=== PATIENT | male | born 1985 | race Two or more races ===

== ENCOUNTER 2017-12-19 23:17 | Emergency (ER) | payer MEDICAID ==
[~2017-12-19] VITALS: Ht 177.8 cm; Wt 97.5 kg
--- NOTE | 2017-12-19 23:17 | NUR ---
EPIGASTRIC PAIN SINCE 1999, UNRELIEVED WITH TUMS. VSS NAD A/OX4 ABLE TO MAKE NEEDS KNOWN. WILL CONTINUE TO MONITOR FOR ANY CHANGES DURING THE SHIFT.
--- NOTE | 2017-12-19 23:19 | NUR ---
ER MD JOHNSON AT BEDSIDE
[2017-12-19] MEDS ORDERED: FAMOTIDINE (20 MG) 20 MG TABLET ONE (23:52)
[2017-12-19] MEDS ORDERED: LIDOCAINE VISCOUS 2% UD 15 ML UDC ONE (23:52)
[2017-12-19] MEDS ORDERED: ONDANSETRON 4 MG TAB.RAPDIS ONE (23:52)
[2017-12-19] MEDS ORDERED: MAG HYDROX/AL HYDROX/SIMETH 30 ML UDC ONE (23:52)
[2017-12-20] MEDS ORDERED: FAMOTIDINE (20 MG) 20 MG TABLET PO ONE
[2017-12-20] MEDS ORDERED: MAG HYDROX/AL HYDROX/SIMETH 30 ML UDC PO ONE
[2017-12-20] MEDS ORDERED: LIDOCAINE VISCOUS 2% UD 15 ML UDC MM ONE
[2017-12-20] MEDS ORDERED: ONDANSETRON 4 MG TAB.RAPDIS PO ONE
[2017-12-20 00:27] VITALS: BP 140/72
== END 2017-12-20 00:28 | disposition home or self-care (01) ==
LOC: ER 23:21
DX: R10.13 Epigastric pain (principal)
CPT/HCPCS: 99284; A4606; Q0162; Z7610

== ENCOUNTER 2018-03-23 06:45 | Emergency (ER) | payer MEDICAID ==
[~2018-03-23] VITALS: Ht 177.8 cm; Wt 99.8 kg
[2018-03-23] MEDS ORDERED: LIDOCAINE VISCOUS 2% UD 15 ML UDC PO ONE (07:00)
[2018-03-23 07:08] VITALS: BP 121/75
[2018-03-23] MEDS ORDERED: FAMOTIDINE (20 MG) 20 MG TABLET PO ONE (07:30)
[2018-03-23] MEDS ORDERED: MAG HYDROX/AL HYDROX/SIMETH 30 ML UDC PO ONE (07:30)
[2018-03-23] MEDS ORDERED: MAG HYDROX/AL HYDROX/SIMETH 30 ML UDC ONE (07:34)
[2018-03-23] MEDS ORDERED: LIDOCAINE VISCOUS 2% UD 15 ML UDC ONE (07:34)
[2018-03-23] MEDS ORDERED: FAMOTIDINE (20 MG) 20 MG TABLET ONE (07:35)
[2018-03-23] MEDS: LIDOCAINE 2% JEL UROJET 10 ML MM ONE ×2 (07:38→07:46)
== END 2018-03-23 07:48 | disposition home or self-care (01) ==
LOC: ER 06:47
DX: K25.9 Gastric ulcer, unspecified as acute or chronic, without hemorrhage or perforation (principal); F17.210 Nicotine dependence, cigarettes, uncomplicated
CPT/HCPCS: 99284; A4606; Z7610

== ENCOUNTER 2018-03-25 01:13 | Emergency (ER) | payer MEDICAID ==
[~2018-03-25] VITALS: Ht 177.8 cm; Wt 99.8 kg
--- NOTE | 2018-03-25 01:25 | NUR ---
Pt came in complaining of abdominal pain just below his right rib, states it is 7/10 on pain scale which started 2 hours prior to admission. He is AA, O/4, ambulates with steady gait, breathing spontaneously to RA. Seen by MD at bedside. Awaiting orders.
[2018-03-25] MEDS ORDERED: MAG HYDROX/AL HYDROX/SIMETH 30 ML UDC PO ONE (01:30)
[2018-03-25] MEDS ORDERED: LIDOCAINE VISCOUS 2% UD 15 ML UDC MM ONE (01:30)
[2018-03-25] MEDS ORDERED: MAG HYDROX/AL HYDROX/SIMETH 30 ML UDC ONE (01:37)
[2018-03-25] MEDS ORDERED: LIDOCAINE VISCOUS 2% UD 15 ML UDC ONE (01:38)
[2018-03-25 02:08] VITALS: BP 137/76
== END 2018-03-25 02:12 | disposition home or self-care (01) ==
LOC: ER 01:17
DX: K29.70 Gastritis, unspecified, without bleeding (principal); F17.200 Nicotine dependence, unspecified, uncomplicated; Z87.11 Personal history of peptic ulcer disease
CPT/HCPCS: A4606; Z7610

== ENCOUNTER 2018-10-08 21:25 | Emergency (ER) | payer MEDICAID ==
[~2018-10-08] VITALS: Ht 177.8 cm; Wt 104.3 kg
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
[2018-10-08] MEDS ORDERED: IBUPROFEN 400 MG TABLET ONE (22:25)
[2018-10-08] MEDS ORDERED: IBUPROFEN 400 MG TABLET PO ONE (22:30)
[2018-10-09 00:09] VITALS: BP 133/91
== END 2018-10-09 00:10 | disposition home or self-care (01) ==
LOC: ER 21:26
DX: S00.03XA Contusion of scalp, initial encounter (principal); S40.011A Contusion of right shoulder, initial encounter; S80.01XA Contusion of right knee, initial encounter; S09.8XXA Other specified injuries of head, initial encounter; R51 Headache; F17.200 Nicotine dependence, unspecified, uncomplicated; V49.49XA Driver injured in collision with other motor vehicles in traffic accident, initial encounter; Y93.89 Activity, other specified; Y92.410 Unspecified street and highway as the place of occurrence of the external cause; Y99.8 Other external cause status
CPT/HCPCS: 70450-TC; 72125-TC; 73030-TC; 73564-TC

== ENCOUNTER 2018-12-27 23:59 | Emergency (ER) | payer MEDICAID ==
[~2018-12-27] VITALS: Ht 177.8 cm; Wt 99.8 kg
[2018-12-28 00:17] VITALS: BP 143/81
[2018-12-28] MEDS ORDERED: CLINDAMYCIN 900 MG/6 ML VIAL IM ONE (00:30)
[2018-12-28] MEDS ORDERED: CLINDAMYCIN 900 MG/6 ML VIAL ONE (00:31)
== END 2018-12-28 01:11 | disposition home or self-care (01) ==
LOC: ER 12-28 00:02
DX: L03.113 Cellulitis of right upper limb (principal); F17.200 Nicotine dependence, unspecified, uncomplicated
CPT/HCPCS: 96372; 99283; J3490

== ENCOUNTER 2019-01-28 20:06 | Emergency (ER) | payer MEDICAID ==
[~2019-01-28] VITALS: Ht 177.8 cm; Wt 95.3 kg
[2019-01-28 21:35] VITALS: BP 130/79
[2019-01-28] MEDS ORDERED: CEFTRIAXONE 1 G VIAL ONE (22:13)
[2019-01-28] MEDS ORDERED: predniSONE 20 MG TABLET ONE (22:13)
[2019-01-28] MEDS ORDERED: LIDOCAINE /MPF 1% VIAL 5 ML VIAL ONE (22:13)
[2019-01-28] MEDS ORDERED: predniSONE 20 MG TABLET PO ONE (22:30)
[2019-01-28] MEDS ORDERED: CEFTRIAXONE 1 G VIAL IM ONE (22:30)
== END 2019-01-28 22:35 | disposition home or self-care (01) ==
LOC: ER 20:12
DX: S60.562A Insect bite (nonvenomous) of left hand, initial encounter (principal); L03.114 Cellulitis of left upper limb; F17.200 Nicotine dependence, unspecified, uncomplicated; W57.XXXA Bitten or stung by nonvenomous insect and other nonvenomous arthropods, initial encounter; Y93.89 Activity, other specified; Y92.89 Other specified places as the place of occurrence of the external cause; Y99.8 Other external cause status
CPT/HCPCS: 96372; 99283; J0696; J3490; J7512

== ENCOUNTER 2019-08-30 21:38 | Emergency (ER) | payer MEDICAID ==
[~2019-08-30] VITALS: Ht 177.8 cm; Wt 95.5 kg
[2019-08-30 21:48] VITALS: BP 147/80
--- NOTE | 2019-08-30 22:24 | NUR ---
Patient discharged to home in stable condition. Written and verbal after care instructions given. Patient verbalizes understanding of instruction.
== END 2019-08-30 22:25 | disposition home or self-care (01) ==
LOC: ER 21:43
DX: J32.1 Chronic frontal sinusitis (principal); J32.0 Chronic maxillary sinusitis; R42 Dizziness and giddiness